=== PATIENT | female | born 1960 | race Caucasian/White ===

== ENCOUNTER 2020-07-27 12:13 | Outpatient (REF) | payer SELFPAY ==
[2020-07-27 13:49] LABS: Cholesterol 176 mg/dL
== END 2020-07-27 12:14 | disposition home or self-care (01) ==
LOC: HO.LNC 12:13
PROVIDERS: Visit Provider Pathology Anatomic Pathology & Clinical Pathology
DX: Z13.220 Encounter for screening for lipoid disorders (principal)
CPT/HCPCS: 82465